=== PATIENT | male | born 1960 | race Caucasian/White ===

== ENCOUNTER 2020-12-12 14:25 | Outpatient (CLI) | payer OTHER | END 2020-12-12 23:59 | disposition home or self-care (01) | LOC: RAD 14:25 | PROVIDERS: ATTEND Family Medicine | DX: K40.90 Unilateral inguinal hernia, without obstruction or gangrene, not specified as recurrent (principal); R10.2 Pelvic and perineal pain | CPT/HCPCS: 76857 ==

== ENCOUNTER 2020-12-15 07:15 | Emergency (ER) | payer OTHER ==
[~2020-12-15] VITALS: Ht 182.9 cm; Wt 75.4 kg
--- NOTE | 2020-12-15 07:46 | NUR ---
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
[2020-12-15] MEDS ORDERED: HYDROmorphone 2 MG/ML, 1ML IVPush PRN (08:00)
[2020-12-15 08:30] LABS: BASOPHILS % (AUTO) 1 % (0-1); EOSINOPHILS % (AUTO) 6 % (1-7); LYMPHOCYTES % (AUTO) 18 % (22-44); MEAN CORPUSCULAR HGB CONC 33.4 g/dL (33.2-36.2); MEAN PLATELET VOLUME 7.7 fL (7.4-10.4); MONOCYTES % (AUTO) 9 % (2-9); NEUTROPHILS % (AUTO) 66 % (42-75); PLATELET COUNT 291 x10^3/uL (130-400); RED BLOOD COUNT 5.37 x10^6/uL (4.38-5.82); RED CELL DISTRIBUTION WIDTH 14.2 % (9.4-14.8)
[2020-12-15] MEDS ORDERED: HYDROmorphone 2 MG/ML, 1ML ONE (08:33)
[2020-12-15 08:35] LABS: ALANINE AMINOTRANSFERASE 40 U/L (12-78); ALBUMIN 3.4 g/dL (3.4-5.0); ANION GAP 7 mmol/L (5-15); CALCIUM 8.8 mg/dL (8.5-10.1); CHLORIDE 100 mmol/L (98-107)
[2020-12-15 08:38] LABS: ALKALINE PHOSPHATASE 64 U/L (45-117); BILIRUBIN,TOTAL 0.4 mg/dL (0.2-1.0); CREATININE 1.29 mg/dL (0.7-1.3); TOTAL PROTEIN 6.8 g/dL (6.4-8.2)
--- NOTE | 2020-12-15 08:45 | NUR ---
pt presents to ED with right groin pain x 2 weeks, states he believes he aquired a hernia two weeks ago after coughing. no visual or palpable mass, reports 9/10 pain level prior to dilaudid admin, 8/10 at this time. all montiors in place. call light in reach. awaiting labs and dispo.
[2020-12-15] MEDS ORDERED: lisinopril PO (08:47)
[2020-12-15 09:37] VITALS: BP 118/81
== END 2020-12-15 10:52 | disposition home or self-care (01) ==
LOC: ED 09:54
DX: K40.91 Unilateral inguinal hernia, without obstruction or gangrene, recurrent (principal)
CPT/HCPCS: 36415; 80053; 83605; 85025; 96374; 99283; J1170